=== PATIENT | male | born 1990 | race African-American/Black ===

== ENCOUNTER 2019-03-01 16:17 | Emergency (ER) | payer SELFPAY ==
[2019-03-01] MEDS ORDERED: Lidocaine 2% VISCOUS* 15 ML UDC PO ONE (17:34)
[2019-03-01] MEDS ORDERED: Acetaminophen TAB* 325 MG PO ONE (17:34)
[2019-03-01 18:00] LABS: Rapid Strep Molecular POSITIVE (Negative)
[2019-03-01 18:11] LABS: Influenza A Molecular NEGATIVE (Negative); Influenza B Molecular NEGATIVE (Negative)
[2019-03-01] MEDS ORDERED: Amoxicillin PO (*) 250 MG CAP PO ONE (18:16)
--- NOTE | 2019-03-01 18:18 | ED ---
Throat Pain/Nasal Congestion - HPI Summary HPI Summary: Patient complains of right-sided earache, body aches, fatigue, sore throat, nausea, mild cough 3 days. Denies fever, nasal congestion, CAMPOS, neck stiffness , CP, SOB, V/D, abdominal pain, change in urine, change in BM. Medical history is asthma. Took ibuprofen at 3 PM. - History of Current Complaint Chief Complaint: EDFluSymptoms Time Seen by Provider: 03/01/19 17:21 Hx Obtained From: Patient Onset/Duration: Gradual Onset, Lasting Days Severity: Moderate Associated Signs And Symptoms: Positive: Negative Cough: Nonproductive - Allergies/Home Medications Allergies/Adverse Reactions: Allergies Allergy/AdvReac Type Severity Reaction Status Date / Time No Known Allergies Allergy Verified 03/01/19 16:20 Home Medications: Home Medications Albuterol HFA INHALER* [Ventolin HFA Inhaler*] 1 puff INH Q4H PRN 03/01/19 [ History Confirmed 03/01/19] PMH/Surg Hx/FS Hx/Imm Hx Endocrine/Hematology History: Denies: Hx Anticoagulant Therapy Cardiovascular History: Denies: Hx Pacemaker/ICD History: Denies: Hx Dialysis Sensory History: Denies: Hx Eye Prosthesis Opthamlomology History: Denies: Hx Legally Blind EENT History: Denies: Hx Deafness Neurological History: Denies: Hx Dementia Psychiatric History: Denies: Hx Autism Infectious Disease History: No Infectious Disease History: Denies: Traveled Outside the [place] in Last 30 Days - Social History Alcohol Use: Occasionally Substance Use Type: Reports: None Smoking Status (MU): Never Smoked Tobacco Review of Systems Constitutional: Negative Eyes: Negative Positive: Sore Throat, Ear Ache Cardiovascular: Negative Positive: Cough Positive: Nausea Genitourinary: Negative Positive: Myalgia Skin: Negative Neurological: Negative Psychological: Normal All Other Systems Reviewed And Are Negative: Yes Physical Exam Triage Information Reviewed: Yes Vital Signs On Initial Exam: Initial Vitals Temp Pulse Resp BP Pulse Ox 100.4 F 103 18 150/72 99 03/01/19 16:19 03/01/19 16:19 03/01/19 16:19 03/01/19 16:19 03/01/19 16:19 Vital Signs Reviewed: Yes Appearance: Positive: Well-Appearing Skin: Positive: Warm Head/Face: Positive: Normal Head/Face Inspection Eyes: Positive: Normal ENT: Positive: Pharyngeal erythema, TMs normal, Tonsillar swelling, Tonsillar exudate, Uvula midline. Negative: Trismus, Muffled voice, Hoarse voice Neck: Positive: Supple Respiratory/Lung Sounds: Positive: Clear to Auscultation Cardiovascular: Positive: Normal Abdomen Description: Positive: Nontender Musculoskeletal: Positive: Normal Neurological: Positive: Normal Psychiatric: Positive: Normal AVPU Assessment: Alert - [place] Coma Scale Best Eye Response: 4 - Spontaneous Best Motor Response: 6 - Obeys Commands Best Verbal Response: 5 - Oriented Coma Scale Total: 15 Diagnostics - Vital Signs Vital Signs Temp Pulse Resp BP Pulse Ox 03/01/19 17:48 100.6 F 03/01/19 16:19 100.4 F 103 18 150/72 99 - Laboratory Lab Results: Lab Results 03/01/19 03/01/19 03/01/19 Range/Units 17:41 17:41 17:46 Monoscreen Negative (Negative) Influenza A (Rapid) Negative (Negative) Influenza B (Rapid) Negative (Negative) Group A Strep Rapid Positive A (Negative) Lab Statement: Any lab studies that have been ordered have been reviewed, and results considered in the medical decision making process. EENT Course/Dx - Course Course Of Treatment: Patient complains of right-sided earache, body aches, fatigue, sore throat, nausea, mild cough 3 days. Denies fever, nasal congestion, CAMPOS, neck stiffness, CP, SOB, V/D, abdominal pain, change in urine, change in BM. Medical history is asthma. Took ibuprofen at 3 PM. Fever controlled with Tylenol. Vital signs otherwise unremarkable. Positive for strep. Rx for amoxicillin. - Diagnoses Provider Diagnoses: Strep pharyngitis Discharge - Sign-Out/Discharge Documenting (check all that apply): Patient Departure Patient Received Moderate/Deep Sedation with Procedure: No - Discharge Plan Condition: Stable Disposition: HOME Prescriptions: Amoxicillin 500 mg PO BID 10 Days #20 capsule Lidocaine 2% VISCOUS* [Xylocaine 2% Viscous*] 15 ml SWISH SPIT Q6H PRN #1 btl PRN Reason: Pain Patient Education Materials: Strep Throat (ED) Referrals: No Primary Care Phys,NOPCP [Primary Care Provider] - Additional Instructions: Used lidocaine as directed for sore throat pain. Alternate ibuprofen 600 mg with Tylenol 650 mg every 3 hours for control of body aches. Take antibiotics as directed for strep throat. Drink plenty of fluids. Follow-up with primary care. Return to the ED for any new or worsening symptoms. - Billing Disposition and Condition Condition: STABLE Disposition: Home
[2019-03-01 18:43] VITALS: BP 135/67
== END 2019-03-01 18:42 | disposition home or self-care (01) ==
LOC: ED 16:17
DX: J02.0 Streptococcal pharyngitis (principal); H92.01 Otalgia, right ear; R11.0 Nausea; R05 Cough
CPT/HCPCS: 36415; 86308; 87651; 99282; A9270-GY